=== PATIENT | male | born 1985 | race Caucasian/White ===

== ENCOUNTER 2022-08-11 00:55 | Emergency (ER) | payer BC, OTHER ==
[2022-08-11] MEDS ORDERED: Aspirin 81 MG Tab.Chew PO ONE (01:04)
[2022-08-11] MEDS ORDERED: Sodium Chloride 0.9% 10 ML Syringe FLUSH PRN (01:04)
[2022-08-11 01:12] LABS: BASOPHILS ABSOLUTE AUTO 0.03 K/mm3 (0.01-0.08); BASOPHILS PERCENT AUTO 0.3 % (0.1-1.2); EOSINOPHILS ABSOLUTE AUTO 0.23 K/mm3 (0.04-0.54); EOSINOPHILS PERCENT AUTO 2.5 (0.8-7.0); HEMATOCRIT 45.2 % (40.1-51.0); HEMOGLOBIN 15.9 gm/dl (13.7-17.5); IMMATURE GRAN ABSOLUTE AUTO 0.02 K/mm3 (0.00-0.10); IMMATURE GRAN PERCENT AUTO 0.2 % (<=1.0); LYMPHOCYTES ABSOLUTE AUTO 3.18 K/mm3 (1.32-3.57); LYMPHOCYTES PERCENT AUTO 34.4 % (21.8-53.1); MEAN CORPUSCULAR HGB CONC 35.2 g/dl (32.2-35.5); MEAN CORPUSCULAR VOLUME 88.1 fl (79.0-92.2); MEAN PLATELET VOLUME 9.4 fl (9.4-12.3); MONOCYTES PERCENT AUTO 8.6 % (5.3-12.2); NEUTROPHILS ABSOLUTE AUTO 4.99 K/mm3 (1.78-5.38); PLATELET COUNT,PLT 279 K/mm3 (163-337); RED BLOOD CELL COUNT 5.13 M/mm3 (4.63-6.08); WHITE BLOOD CELL COUNT,WBC 9.25 K/mm3 (4.23-9.07)
[2022-08-11 01:31] LABS: INR 0.94; PROTHROMBIN TIME 10.1 SECONDS (9.7-12.0)
[2022-08-11 01:32] LABS: D-DIMER QUANTITATIVE 0.2 mg/L (0.19-0.50)
[2022-08-11 01:43] LABS: A/G RATIO 1.1 (1-2); ANION GAP 13.5 (5-15); BILIRUBIN TOTAL 0.7 mg/dL (0.2-1.0); CALCIUM 8.9 mg/dL (8.5-10.1); CREATININE 1.1 mg/dL (0.7-1.3); EST CRCL DRUG DOSING (CG) 104.92 mL/min; POTASSIUM,K 3.5 mEq/L (3.5-5.1); PROTEIN TOTAL,TP 7.7 g/dl (6.4-8.2)
[2022-08-11] MEDS ORDERED: Albuterol/Ipratropium 3.0-0.5 MG/3 ML Neb Soln NEB SCH (02:00)
[2022-08-11 03:47] LABS: BARBITURATE SCREEN,URINE NEGATIVE (CUTOFF=200); BENZODIAZEPINES SCREEN,URINE NEGATIVE (CUTOFF=150); BUPRENORPHINE SCREEN,URINE NEGATIVE (CUTOFF=10); METHADONE SCREEN, URINE NEGATIVE (CUT0FF=200); METHAMPHETAMINES SCREEN, URINE NEGATIVE (CUTOFF=500); OXYCODONE SCREEN,URINE NEGATIVE (CUT0FF=100); PROPOXYPHENE SCREEN,URINE NEGATIVE (CUTOFF=300); THC SCREEN,URINE 20 NG/ML NEGATIVE (CUTOFF=50)
[2022-08-11 03:49] LABS: AMPHETAMINES SCREEN, URINE NEGATIVE (CUTOFF=500)
== END 2022-08-11 04:41 | disposition home or self-care (01) ==
LOC: JD.ED 00:55 → MERGE 00:55 → JD.ED 04:41
DX: R00.2 Palpitations (principal); R07.9 Chest pain, unspecified
CPT/HCPCS: 36415; 71045; 71045-26; 80053; 80306; 83735; 84443; 84484; 85025; 85379; 85610; 93005; 93246; 94640; 94762; 99285; A9270-GY; J7620-GY